=== PATIENT | female | born 1995 | race African-American/Black ===

== ENCOUNTER 2018-08-31 22:23 | Emergency (ER) | payer OTHER ==
[~2018-08-31] VITALS: Ht 167.6 cm; Wt 81.6 kg
[2018-08-31 22:25] VITALS: BP 128/69
--- NOTE | 2018-08-31 22:58 | PHYS DOC ---
Past History Past Medical History: Asthma, Other Past Surgical History: No Surgical History Alcohol Use: Occasionally Drug Use: Marijuana Adult General Chief Complaint Chief Complaint: COUGH HPI HPI 23-year-old female that identifies as male presents with cough and concern for wheezing. He has had an intermittent cough the last 2-3 days. He uses an inhaler intermittently for the symptoms still feels like he is having wheezing. He has had runny nose and some sinus congestion as well. The patient has never had a formal asthma diagnosis. He denies fever or chills. Review of Systems Review of Systems Constitutional: Denies fever or chills [] Eyes: Denies change in visual acuity, redness, or eye pain [] HENT: Denies nasal congestion or sore throat [] Respiratory: cough, wheezing [] Cardiovascular: No additional information not addressed in HPI [] GI: Denies abdominal pain, nausea, vomiting, bloody stools or diarrhea [] : Denies dysuria or hematuria [] Musculoskeletal: Denies back pain or joint pain [] Integument: Denies rash or skin lesions [] Neurologic: Denies headache, focal weakness or sensory changes [] Endocrine: Denies polyuria or polydipsia [] All other systems were reviewed and found to be within normal limits, except as documented in this note. Physical Exam Physical Exam Constitutional: Well developed, well nourished, no acute distress, non-toxic appearance. [] HENT: Normocephalic, atraumatic, bilateral external ears normal, oropharynx moist, no oral exudates, nose normal. [] Eyes: PERRLA, EOMI, conjunctiva normal, no discharge. [] Neck: Normal range of motion, no tenderness, supple, no stridor. [] Cardiovascular:Heart rate regular rhythm, no murmur [] Lungs & Thorax: Bilateral breath sounds clear to auscultation, no wheezing [] Abdomen: Bowel sounds normal, soft, no tenderness, no masses, no pulsatile masses. [] Skin: Warm, dry, no erythema, no rash. [] Back: No tenderness, no CVA tenderness. [] Extremities: No tenderness, no cyanosis, no clubbing, ROM intact, no edema. [] Neurologic: Alert and oriented X 3, normal motor function, normal sensory function, no focal deficits noted. [] Psychologic: Affect normal, judgement normal, mood normal. [] Current Patient Data Vital Signs Vital Signs Date Time Temp Pulse Resp B/P (MAP) Pulse Ox O2 Delivery O2 Flow Rate FiO2 08/31/18 22:25 99.0 79 18 98 EKG EKG [] Radiology/Procedures Radiology/Procedures [] Impressions: CHEST PA LATERAL CLINICAL INDICATION: Chest tightness, cough, congestion x 3 days COMPARISON: None FINDINGS: Heart is normal in size. Central bilateral peribronchial wall thickening seen. No focal consolidation. No pneumothorax or pleural effusion. Visualized bony thorax within normal limits. IMPRESSION: Findings suggests bronchitis. Electronically signed by: Khai Payton DO (08/31/2018 11:00 PM) [facility] DICTATED AND SIGNED BY: KHAI PAYTON DO DATE: 08/31/18 2300 CC: FRANSISCO LAUREN DO; SARAH,STAFF Course & Med Decision Making Course & Med Decision Making Pertinent Labs and Imaging studies reviewed. (See chart for details) The patient's exam was benign. The chest x-ray does show evidence of bronchitis. This is likely viral and will need to run its course. The patient is stable for discharge at this time. [] Dragon Disclaimer Dragon Disclaimer This electronic medical record was generated, in whole or in part, using a voice recognition dictation system. Departure Departure: Referrals: SARAH,STAFF (PCP) FRASNISCO LAUREN DO Aug 31, 2018 22:58
--- NOTE | 2018-08-31 23:04 | RAD ---
CHEST PA LATERAL CLINICAL INDICATION: Chest tightness, cough, congestion x 3 days COMPARISON: None FINDINGS: Heart is normal in size. Central bilateral peribronchial wall thickening seen. No focal consolidation. No pneumothorax or pleural effusion. Visualized bony thorax within normal limits. IMPRESSION: Findings suggests bronchitis. Electronically signed by: Khai Francis DO (08/31/2018 11:00 PM) [facility]
== END 2018-08-31 23:10 | disposition home or self-care (01) ==
LOC: ER 22:23
DX: R05 Cough (principal); R06.2 Wheezing; R09.89 Other specified symptoms and signs involving the circulatory and respiratory systems; R09.81 Nasal congestion; J45.901 Unspecified asthma with (acute) exacerbation
CPT/HCPCS: 71046; 99283